=== PATIENT | male | born 1985 | race African-American/Black ===

== ENCOUNTER → 2017-01-23 | Outpatient (CLI) | payer OTHER, SELFPAY ==
[~2017-01-23] MED LIST: BACT800T5 PO; CLEO300C2 PO; HYDR-3713 PO; NICO14DI20 TD
--- NOTE | 2017-01-28 09:53 | SLEEPCENT ---
DATE OF PROCEDURE: 01/23/1027 ORDERED BY: ANDREA Castro Nocturnal polysomnography was performed for the titration of pressure therapy in this patient with obstructive sleep apnea syndrome, apnea hypopnea index of 8. For testing, the patient was fit with a Fajardo and Paycarlos, Simplus full face mask of medium size. 4 cm of water pressure were applied to the circuit and the lights were extinguished. 7 hours and 37 minutes of data were reviewed. There were 395 minutes of sleep identified. Sleep latency was mildly prolonged at 20 minutes. Rapid eye movement (REM) latency was normal at 84 minutes. Sleep architecture was good with 3 REM periods. Overall sleep efficiency was 88.7%. The patient's electrocardiogram (EKG) showed a sinus rhythm with an average heart rate of 64 beats per minute. Electroencephalogram (EEG) showed reasonably normal waveforms for awake and sleep. Respiratory events were found best palliated with CPAP at a pressure of +12. Some limb activity noted, but arousals from limb events occurred only 3.8 times per hour. IMPRESSION: Obstructive sleep apnea syndrome (G47.33). RECOMMENDATION: Nightly use of pressure therapy 12 cm of water.
== END ==
LOC: M SLEEP 19:54
PROVIDERS: ATTEND Nurse Practitioner Adult Health
DX: G47.33 Obstructive sleep apnea (adult) (pediatric) (principal)

== ENCOUNTER 2017-12-17 14:22 | Emergency (ER) | payer OTHER, SELFPAY | END 2017-12-17 16:48 | disposition home or self-care (01) | LOC: M ED 14:22 | DX: K02.9 Dental caries, unspecified (principal); F17.200 Nicotine dependence, unspecified, uncomplicated | CPT/HCPCS: 99283 ==

== ENCOUNTER 2019-11-21 13:06 | Emergency (ER) | payer OTHER, SELFPAY ==
[~2019-11-21] VITALS: Ht 167.6 cm; Wt 80.6 kg
[~2019-11-21 13:06] MED LIST changes: +HYDR-3715 PO; +PENI500T PO
[2019-11-21] MEDS ORDERED: ONDANSETRON 4 MG ORAL DISINTEGRATING TAB (Q0162 PER 1MG) PO ONE (15:00)
--- NOTE | 2019-11-21 15:07 | REP ---
Chest x-ray: Two views. History: fever and shortness of breath . Comparison study: June 07, 2012 . Findings: The lungs are well inflated and free of infiltrate. The pleural angles are sharp. The heart size is normal. Pulmonary vasculature is not increased. No significant bony abnormality is seen. Impression: Negative chest x-ray. Electronically Signed by Vito Barnes MD 11/21/2019 02:59 P
--- NOTE | 2019-11-21 15:25 | REP ---
Right thumb series: Four views. History: Fever, shortness of breath. Findings: Four views of the right thumb demonstrate normal bones, joints, and soft tissues. No fracture subluxation or opaque foreign body is seen. Impression: No acute bony abnormality. Electronically Signed by Vito Barnes MD 11/21/2019 05:52 P
[2019-11-21] MEDS ORDERED: ADACEL/BOOSTRIX VACCINE (DIPHTH/PERTUSS/ACELL/TETANUS)0.5ML SYR (90715) IM ONE (15:30)
[2019-11-21] MEDS ORDERED: ONDA4TAB6 PO (15:42)
[2019-11-21 15:55] VITALS: BP 155/96
== END 2019-11-21 15:57 | disposition home or self-care (01) ==
LOC: M ED 13:06
DX: B34.9 Viral infection, unspecified (principal); R19.7 Diarrhea, unspecified; J02.9 Acute pharyngitis, unspecified; R11.0 Nausea; S61.011A Laceration without foreign body of right thumb without damage to nail, initial encounter; X58.XXXA Exposure to other specified factors, initial encounter; Y92.89 Other specified places as the place of occurrence of the external cause
CPT/HCPCS: 71046; 73140; 87880; 90471; 90715; 99284; Q0162

== ENCOUNTER 2021-08-28 20:58 | Emergency (ER) | payer SELFPAY ==
[~2021-08-28] VITALS: Ht 170.2 cm; Wt 87.3 kg
[~2021-08-28 20:58] MED LIST changes: +ONDA4TAB6 PO
--- OUTSIDE RECORDS SUMMARY | 2021-08-28 21:04 | CCD ---
Author Author [facility] Organization [facility] Address Unknown Phone Unavailable Support Name Relationship Address Phone SONIC Next Of Kin [address] [place] [address] YUSEF MENCHACA Next Of Kin [address] [place] [address] DEMARCUS MENCHACA Next Of Kin [address] [place] [id number] UE Next Of Kin Unknown Unavailable QUIN [place] [address] Unavailable JJ BEATTY Next Of Kin [address] [facility] [address] [place] [phone] Demarcus Menchaca ECON Unknown Unavailable Re-disclosure Warning The records that you are about to access may contain information from federally-assisted alcohol or drug abuse programs. If such information is present, then the following federally mandated warning applies: This information has been disclosed to you from records protected by federal confidentiality rules (42 CFR part 2). The federal rules prohibit you from making any further disclosure of this information unless further disclosure is expressly permitted by the written consent of the person to whom it pertains or as otherwise permitted by 42 CFR part 2. A general authorization for the release of medical or other information is NOT sufficient for this purpose. The Federal rules restrict any use of the information to criminally investigate or prosecute any alcohol or drug abuse patient.The records that you are about to access may contain highly sensitive health information, the redisclosure of which is protected by Article 27-F of the [facility] Public Health law. If you continue you may have access to information: Regarding HIV / AIDS; Provided by facilities licensed or operated by the [facility] Office of Mental Health; or Provided by the [facility] Office for People With Developmental Disabilities. If such information is present, then the following [facility] mandated warning applies: This information has been disclosed to you from confidential records which are protected by state law. State law prohibits you from making any further disclosure of this information without the specific written consent of the person to whom it pertains, or as otherwise permitted by law. Any unauthorized further disclosure in violation of state law may result in a fine or senior living sentence or both. A general authorization for the release of medical or other information is NOT sufficient authorization for further disc losure. Family History Family Member Name Family Member Gender Family Member Status Date o f Status Description Data Source(s) Unknown Male Problem [facility] ([facility] () Medications No Information Insurance Providers Payer name Policy type / Coverage type Policy ID Covered democrat ID Covered democrat's relationship to lopez Policy Lopez Plan Information [place] [employer] ([facility]) [id number] 0 [id number] Self [id number] [place] [employer] ([facility]) [id number] 0 [id number] Self [id number] SELF PAY ONLY UNAVAILABLE SP UNAV AILABLE MEDICAID M [id number] S [id number] O UNAVAILABLE UNAVAILA BLE MEDICAID [id number] SP [id number] SELF PAY UNAVAILABLE SP UNAVAILA BLE OTHER1 UNAVAILABLE UNAVAILA BLE SELF PAY ONLY [id number] SP [id number] P UNAVAILABLE UNAVAILA BLE [facility] [id number] Problems, Conditions, and Diagnoses No Information Surgeries/Procedures No Information Results No Information Social History No Information
[2021-08-29] MEDS ORDERED: KETOROLAC 30 MG/ML 1ML VIAL IV ONE (09:20)
--- OUTSIDE RECORDS SUMMARY | 2021-08-29 09:23 | CCD ---
Author Author [facility] Organization [facility] Address Unknown Phone Unavailable Support Name Relationship Address Phone SONIC Next Of Kin [address] [place] [address] YUSEF MENCHACA Next Of Kin [address] [place] [address] DEMARCUS MENCHACA Next Of Kin [address] [place] [id number] UE Next Of Kin Unknown Unavailable QU[place] [address] Unavailable JJ BEATTY Next Of Kin [address] [facility] [address] [place] [phone] Demarcus Menchaca ECON Unknown Unavailable Re-disclosure Warning [...] is protected by Article 27-F of the [facility] Public Health law. If you continue you may have access to information: Regarding HIV / AIDS; Provided by facilities licensed or operated by the [facility] Office of Mental Health; or Provided by the [facility] Office for People With Developmental Disabilities. If such information is present, then the following [facility] mandated warning applies: This information has been [...] law may result in a fine or residential sentence or both. A general authorization for the release of medical or other information is NOT sufficient authorization for further disc losure. Family History Family Member Name Family Member Gender Family Member Status Date o f Status Description Data Source(s) Unknown Male Problem [facility] ([facility] () Medications No Information Insurance Providers Payer name Policy type / Coverage type Policy ID Covered green party ID Covered green party's relationship to lopez Policy Lopez Plan Information [place] [employer] ([facility]) [id number] 0 [id number] Self [id number] [place] [employer] ([facility]) [id number] 0 [id number] Self [id number] SELF PAY ONLY UNAVAILABLE SP UNAV AILABLE MEDICAID M [id number] S [id number] O UNAVAILABLE UNAVAILA BLE MEDICAID [id number] SP [id number] SELF PAY UNAVAILABLE SP UNAVAILA BLE OTHER1 UNAVAILABLE UNAVAILA BLE SELF PAY ONLY [id number] SP [id number] P UNAVAILABLE UNAVAILA BLE [facility] [id number] Problems, Conditions, and Diagnoses No Information Surgeries/Procedures No Information Results No Information Social History No Information
[2021-08-29 10:54] LABS: BASO % 0.4 % (0.0-1.0); EOS # 0.2 10^3/uL (0.0-0.5); EOS % 1.8 % (0.0-3.0); HEMOGLOBIN 15.1 g/dl (13.5-17.5); LYMPH # 2.6 10^3/uL (1.5-5.0); LYMPH % 25.3 % (24.0-44.0); MEAN CORPUSCULAR HEMOGLOBIN 29.8 pg (27.0-33.0); MEAN CORPUSCULAR HGB CONC 33.6 g/dl (32.0-36.5); MEAN CORPUSCULAR VOLUME 88.9 fl (80.0-96.0); MONO # 0.6 10^3/uL (0.0-0.8); MONO % 5.9 % (2.0-8.0); NEUTROPHILS # 6.9 10^3/uL (1.5-8.5); NEUTROPHILS % 66.3 % (36.0-66.0); PLATELET COUNT, AUTOMATED 228 10^3/uL (150-450); RED BLOOD COUNT 5.06 10^6/uL (4.30-6.10); WHITE BLOOD COUNT 10.4 10^3/uL (4.0-10.0)
[2021-08-29 11:21] LABS: ERYTHROCYTE SEDIMENTATION RATE 15 mm/hr (0-15)
[2021-08-29] MEDS ORDERED: ISOVUE-370 76% 100ML VIAL As Ordered ONE (11:45)
--- NOTE | 2021-08-29 13:23 | REPVR ---
PROCEDURE INFORMATION: Exam: CT Neck With Contrast Exam date and time: 08/29/2021 11:47 AM Age: 35 years old Clinical indication: Mass, lump, or swelling in neck; Left; Additional info: Dental caries, R/O abscess L upper teeth TECHNIQUE: Imaging protocol: Computed tomography images of the neck with contrast. Radiation optimization: All CT scans at this facility use at least one of these dose optimization techniques: automated exposure control; mA and/or kV adjustment per patient size (includes targeted exams where dose is matched to clinical indication); or iterative reconstruction. Contrast material: ISOVUE 370; Contrast volume: 75 ml; Contrast route: INTRAVENOUS (IV); COMPARISON: CT Neck with contrast 01/25/2016 1:07 PM FINDINGS: Paranasal sinuses: Marked mucosal thickening is present in the left maxillary sinus. Nasopharynx: Unremarkable. Dental: Extensive dental disease is present. Large dental caries and periapical abscesses are seen involving the left maxillary molar teeth. No adjacent subperiosteal abscess is identified. Oropharynx: Unremarkable. No significant tonsillar enlargement. Hypopharynx: Unremarkable. Larynx: Unremarkable. Normal epiglottis. Retropharyngeal space: Unremarkable. Submandibular/Parotid glands: Normal. Glands are normal in size. Thyroid: Normal. No enlarged or calcified nodules. Lymph nodes: Several mildly enlarged left submandibular and cervical chain lymph nodes are present. There are numerous small bilateral cervical chain lymph nodes. Trachea: Visualized trachea is unremarkable. Lungs: Unremarkable as visualized. Bones/joints: Mild degenerative changes of the cervical spine are present. Soft tissues: Unremarkable. No significant soft tissue swelling. IMPRESSION: 1. Extensive dental disease is present. Large dental caries and periapical abscesses are seen involving the left maxillary molar teeth. No adjacent subperiosteal abscess is identified. 2. Several mildly enlarged left submandibular and cervical chain lymph nodes are present. Electronically signed by: Lucius Mittal On 08/29/2021 13:23:09 PM
[2021-08-29] MEDS ORDERED: AMPICILLIN SOD/SULBACTAM SOD 3 GM in D5W MINI-BAG PLUS 100 ML IV ONE (13:35)
[2021-08-29] MEDS ORDERED: AUGM875T28 PO (13:51)
[2021-08-29] MEDS ORDERED: HYDR-3713 PO (13:51)
[2021-08-29] MEDS ORDERED: IBUP80TA PO (13:51)
[2021-08-29 14:41] VITALS: BP 141/85
== END 2021-08-29 15:12 | disposition home or self-care (01) ==
LOC: M ED 20:58
DX: K04.7 Periapical abscess without sinus (principal); K02.9 Dental caries, unspecified; R59.9 Enlarged lymph nodes, unspecified; R68.84 Jaw pain; G47.33 Obstructive sleep apnea (adult) (pediatric); F17.200 Nicotine dependence, unspecified, uncomplicated
CPT/HCPCS: 70491; 80047; 85025; 85652; 86140; 87040; 96365; 96375; 99284; J1885; Q9967

== ENCOUNTER 2021-09-13 09:41 | Emergency (ER) | payer SELFPAY ==
[~2021-09-13] VITALS: Ht 170.2 cm; Wt 88.9 kg
[~2021-09-13 09:41] MED LIST changes: +AUGM875T28 PO; +IBUP80TA PO
--- OUTSIDE RECORDS SUMMARY | 2021-09-13 09:47 | CCD ---
Author Author [facility] Organization [facility] Address Unknown Phone Unavailable Support Name Relationship Address Phone SONIC Next Of Kin [address] [place] [address] YUSEF MENCHACA Next Of Kin [address] [place] [address] RAMBO MENCHACA Next Of Kin [address] [place] [address] UE Next Of Kin Unknown Unavailable QUIN [place] [address] Unavailable JJ BEATTY Next Of Kin [address] [facility] [address] [place] [phone] RAMBO MENCHACA ECON [address] [place] [address] Unavailable Re-disclosure Warning The records that you [...] is protected by Article 27-F of the [facility] Public Health law. If you continue you may have access to information: Regarding HIV / AIDS; Provided by facilities licensed or operated by the [facility] Office of Mental Health; or Provided by the [facility] Office for People With Developmental Disabilities. If such information is present, then the following [place] mandated warning applies: This information has been [...] law may result in a fine or shelter sentence or both. A general authorization for the release of medical or other information is NOT sufficient authorization for further disc losure. Family History Family Member Name Family Member Gender Family Member Status Date o f Status Description Data Source(s) Unknown Male Problem [facility] ([facility] () Medications No Information Insurance Providers Payer name Policy type / Coverage type Policy ID Covered alliance party ID Covered alliance party's relationship to lopez Policy Lopez Plan Information [place] [employer] ([facility]) [id number] 0 [id number] Self 7 [id number] [employer] ([facility]) [id number] 0 [id number] Self 7 [id number] SELF PAY ONLY UNAVAILABLE SP UNAV AILABLE MEDICAID M [id number] S [id number] O UNAVAILABLE UNAVAILA BLE MEDICAID [id number] SP [id number] SELF PAY UNAVAILABLE SP UNAVAILA BLE OTHER1 UNAVAILABLE UNAVAILA BLE SELF PAY ONLY [id number] SP [id number] P UNAVAILABLE UNAVAILA BLE [facility] [id number] Problems, Conditions, and Diagnoses No Information Surgeries/Procedures No Information Results No Information Social History No Information
--- OUTSIDE RECORDS SUMMARY | 2021-09-13 13:13 | CCD ---
Author Author [facility] Organization [facility] Address Unknown Phone Unavailable Support Name Relationship Address Phone SONIC Next Of Kin [address] [place] [address] YUSEF MENCHACA Next Of Kin [address] [place] [address] RAMBO MENCHACA Next Of Kin [address] [place] [address] UE Next Of Kin Unknown Unavailable QU[place] [address] Unavailable JJ BEATTY Next Of Kin [address] [facility] [address] [place] [phone] RAMBO MENCHACA ECON [address] [place] [address] Unavailable Re-disclosure Warning The records that you [...] is protected by Article 27-F of the [facility] Public Health law. If you continue you may have access to information: Regarding HIV / AIDS; Provided by facilities licensed or operated by the [facility] Office of Mental Health; or Provided by the [facility] Office for People With Developmental Disabilities. If such information is present, then the following [place] mandated warning applies: This information has [...] law may result in a fine or long-term sentence or both. A general authorization for [...] type / Coverage type Policy ID Covered libertarian ID Covered libertarian's relationship to lopez Policy Lopez Plan Information [employer] [employer] ([facility]) [id number] 0 [id number] Self 7 [id number] [employer] ([facility]) [id number] 0 [id number] Self 7 [id number] SELF PAY ONLY UNAVAILABLE SP UNAV AILABLE MEDICAID M [id number] S [id number] O UNAVAILABLE UNAVAILA BLE MEDICAID [id number] SP [id number] SELF PAY UNAVAILABLE SP UNAVAILA BLE OTHER1 UNAVAILABLE UNAVAILA BLE SELF PAY ONLY [id number] SP [id number] P UNAVAILABLE UNAVAILA BLE [facility] [id number] Problems, Conditions, and Diagnoses No Information Surgeries/Procedures No Information Results No Information Social History No Information
[2021-09-13 13:27] LABS: RSV AMPLIFICATION NEGATIVE (NEGATIVE)
[2021-09-13 14:34] VITALS: BP 110/89
== END 2021-09-13 14:47 | disposition home or self-care (01) ==
LOC: M ED 09:41
DX: Z20.822 Contact with and (suspected) exposure to COVID-19 (principal); F17.200 Nicotine dependence, unspecified, uncomplicated

== ENCOUNTER 2022-07-09 07:51 | Emergency (ER) | payer SELFPAY ==
[~2022-07-09] VITALS: Ht 170.2 cm; Wt 84.0 kg
[~2022-07-09 07:51] MED LIST changes: +OXYM15SP2
[2022-07-09] MEDS ORDERED: LIDOCAINE 2% W/ EPINEPHRINE 1.7 ML DENTAL INJ SM ONE ×2 (08:15→08:45)
[2022-07-09] MEDS ORDERED: IBUPROFEN 800 MG TAB PO ONE (08:45)
[2022-07-09 09:28] VITALS: BP 138/96
== END 2022-07-09 09:30 | disposition home or self-care (01) ==
LOC: M ED 07:51
DX: S02.5XXA Fracture of tooth (traumatic), initial encounter for closed fracture (principal); X58.XXXA Exposure to other specified factors, initial encounter; Y92.89 Other specified places as the place of occurrence of the external cause; G47.33 Obstructive sleep apnea (adult) (pediatric); Z99.89 Dependence on other enabling machines and devices; F17.200 Nicotine dependence, unspecified, uncomplicated

== ENCOUNTER 2022-09-01 21:06 | Emergency (ER) | payer SELFPAY ==
[~2022-09-01] VITALS: Ht 170.2 cm; Wt 76.4 kg
[2022-09-02 01:25] VITALS: BP 135/85
[2022-09-02] MEDS ORDERED: DOXYCYCLINE HYCLATE 100MG TABLET PO ONE (06:15)
[2022-09-02] MEDS ORDERED: DOXY-443 PO (06:21)
== END 2022-09-02 06:30 | disposition home or self-care (01) ==
LOC: M ED 21:06
DX: H60.13 Cellulitis of external ear, bilateral (principal); G47.30 Sleep apnea, unspecified; F17.210 Nicotine dependence, cigarettes, uncomplicated

== ENCOUNTER 2023-06-13 20:27 | Inpatient (IN) | payer SELFPAY ==
[~2023-06-13] VITALS: Ht 170.2 cm; Wt 86.4 kg
[~2023-06-13 20:27] MED LIST changes: +DOXY-443 PO
[2023-06-13] MEDS ORDERED: NS 1,000 ML IV ONE (22:50)
[2023-06-13] MEDS ORDERED: VANCOMYCIN HCL 1,500 MG in IV FLUID PLACE HOLDER 1 EA IV ONE (22:50)
[2023-06-13] MEDS ORDERED: ACETAMINOPHEN 325 MG TAB PO ONE (23:00)
[2023-06-13] MEDS ORDERED: VANCOMYCIN HCL 750 MG, VIAL MATE ADAPTER 1 EACH in D5W 250 ML IV ONE ×6 (23:00)
[2023-06-13 23:24] LABS: BASO # 0.1 10^3/uL (0.0-0.2); BASO % 0.2 % (0.0-1.0); EOS # 0.1 10^3/uL (0.0-0.5); EOS % 0.2 % (0.0-3.0); HEMATOCRIT 40.4 % (42.0-52.0); HEMOGLOBIN 13.6 g/dl (13.5-17.5); LYMPH # 2.4 10^3/uL (1.5-5.0); LYMPH % 11.4 % (24.0-44.0); MEAN CORPUSCULAR HEMOGLOBIN 29.4 pg (27.0-33.0); MEAN CORPUSCULAR HGB CONC 33.7 g/dl (32.0-36.5); MEAN CORPUSCULAR VOLUME 87.4 fl (80.0-96.0); MONO # 1.4 10^3/uL (0.0-0.8); MONO % 6.7 % (2.0-8.0); NEUTROPHILS # 17.1 10^3/uL (1.5-8.5); NEUTROPHILS % 80.9 % (36.0-66.0); PLATELET COUNT, AUTOMATED 242 10^3/uL (150-450); RED BLOOD COUNT 4.62 10^6/uL (4.30-6.10); WHITE BLOOD COUNT 21.1 10^3/uL (4.0-10.0)
[2023-06-13 23:32] LABS: ERYTHROCYTE SEDIMENTATION RATE 61 mm/hr (0-15)
[2023-06-13 23:37] LABS: INR 1.22; PROTHROMBIN TIME 15.7 SECONDS (12.5-14.5)
[2023-06-13 23:38] LABS: PARTIAL THROMBOPLASTIN TIME 32.5 SECONDS (24.8-34.2)
[2023-06-13 23:44] LABS: ALBUMIN 3.7 G/DL (3.2-5.2); BILIRUBIN,DIRECT 0.3 MG/DL (<0.4); BILIRUBIN,TOTAL 0.7 MG/DL (0.3-1.2); C REACTIVE PROTEIN QUANTITATIV 18.1 MG/DL (<1.0); TOTAL PROTEIN 6.7 G/DL (5.7-8.2)
[2023-06-14] VITALS (8 sets, daily range): BP systolic 140–164; BP diastolic 69–92; TEMP 97.3–100.9; O2SAT 97–100
[2023-06-14] MEDS ORDERED: NS 1,430 ML in IV 1 EA IV ONE (00:15)
[2023-06-14] MEDS ORDERED: HOME MED LIST COMPLETE! XX SCH (00:40)
[2023-06-14] MEDS ORDERED: ACETAMINOPHEN TAB 650MG DOSE (2X325MG) PO PRN (01:45)
[2023-06-14] MEDS ORDERED: NS 1,000 ML IV SCH (01:55)
[2023-06-14] MEDS: HEPARIN SOD (PORCINE) 5000UNITS/ML 1ML VIAL/SYRINGE SC SCH ×3 (05:50→22:28)
[2023-06-14] MEDS: VANCOMYCIN HCL 1,000 MG, VIAL MATE ADAPTER 1 EACH in NS 250 ML IV SCH ×2 (05:50→14:27)
[2023-06-14] MEDS: NS 1,000 ML IV SCH ×3 (07:00→22:28)
[2023-06-14 08:27] LABS: HEMOGLOBIN 13.1 g/dl (13.5-17.5); MEAN CORPUSCULAR HEMOGLOBIN 29.8 pg (27.0-33.0); MEAN CORPUSCULAR HGB CONC 33.6 g/dl (32.0-36.5); MEAN CORPUSCULAR VOLUME 88.8 fl (80.0-96.0); PLATELET COUNT, AUTOMATED 222 10^3/uL (150-450); RED BLOOD COUNT 4.39 10^6/uL (4.30-6.10); WHITE BLOOD COUNT 24.4 10^3/uL (4.0-10.0)
[2023-06-14] MEDS: IBUPROFEN 400MG TAB PO SCH ×2 (09:11→22:27)
[2023-06-14 09:24] LABS: HIV 1&2 SCREEN NEGATIVE (NEGATIVE)
[2023-06-14 09:34] LABS: ALKALINE PHOSPHATASE 62 U/L (46-116); ALT/SGPT 10 U/L (7.0-40); AST/SGOT 9 U/L (<34); BILIRUBIN,TOTAL 0.7 MG/DL (0.3-1.2); BLOOD UREA NITROGEN 6 MG/DL (9-23); CARBON DIOXIDE LEVEL 24 MMOL/L (20-31); CHLORIDE LEVEL 108 MMOL/L (98-107); CREATININE FOR GFR 0.79 MG/DL (0.70-1.30); GLOMERULAR FILTRATION RATE > 60.0 (>60); GLUCOSE, FASTING 88 MG/DL (60-100); MAGNESIUM LEVEL 1.6 MG/DL (1.8-2.4); POTASSIUM SERUM 3.7 MMOL/L (3.5-5.1); SODIUM LEVEL 142 MMOL/L (136-145); TOTAL PROTEIN 5.7 G/DL (5.7-8.2)
[2023-06-14 10:34] LABS: ANTI-STREPTOLYSIN O QUANT 90.1 IU/ML (<195)
[2023-06-14] MEDS ORDERED: propofoL 200 MG/20 ML VIAL As Ordered ONE (20:18)
[2023-06-14] MEDS ORDERED: KETOROLAC 60MG 2ML VIAL As Ordered ONE ×2 (20:18→20:23)
[2023-06-14] MEDS ORDERED: ONDANSETRON 4MG 2ML VIAL As Ordered ONE (20:18)
[2023-06-14] MEDS ORDERED: MIDAZOLAM INJ 2MG/2ML VIAL As Ordered ONE (20:18)
[2023-06-14] MEDS ORDERED: fentaNYL 100 MCG/2 ML INJECTION As Ordered ONE (20:18)
[2023-06-14] MEDS ORDERED: LIDOCAINE 2% 100MG/5ML SDV (FOR ANES.) As Ordered ONE (20:18)
[2023-06-14] MEDS ORDERED: dexmedeTOMIDine (4MCG/ML)200MCG/50ML BTL (PRECEDEX) As Ordered ONE (20:23)
[2023-06-14] MEDS ORDERED: ACETAMINOPHEN 1000MG 100ML IV BAG As Ordered ONE (21:26)
[2023-06-14] MEDS ORDERED: PERCOCET 5MG/325MG TAB PO PRN (23:15)
[2023-06-14] MEDS: PERCOCET 5MG/325MG TAB PO PRN (23:37)
[2023-06-15] VITALS (21 sets, daily range): BP systolic 108–152; BP diastolic 59–90; TEMP 96.5–98.3; O2SAT 96–100
[2023-06-15] MEDS: VANCOMYCIN HCL 1,000 MG, VIAL MATE ADAPTER 1 EACH in NS 250 ML IV SCH ×4 (00:54→16:14)
[2023-06-15] MEDS ORDERED: ACETAMINOPHEN TAB 650MG DOSE (2X325MG) PO PRN (01:45)
[2023-06-15 04:54] LABS: BASO % 0.1 % (0.0-1.0); HEMATOCRIT 37.9 % (42.0-52.0); HEMOGLOBIN 12.5 g/dl (13.5-17.5); LYMPH # 1.1 10^3/uL (1.5-5.0); LYMPH % 4.5 % (24.0-44.0); MEAN CORPUSCULAR HEMOGLOBIN 29.6 pg (27.0-33.0); MEAN CORPUSCULAR VOLUME 89.8 fl (80.0-96.0); MONO % 4.3 % (2.0-8.0); NEUTROPHILS # 21.5 10^3/uL (1.5-8.5); NEUTROPHILS % 89.4 % (36.0-66.0); PLATELET COUNT, AUTOMATED 223 10^3/uL (150-450); RED BLOOD COUNT 4.22 10^6/uL (4.30-6.10)
[2023-06-15 04:59] LABS: BLOOD UREA NITROGEN 7 MG/DL (9-23); CALCIUM LEVEL 7.9 MG/DL (8.5-10.1); CARBON DIOXIDE LEVEL 23 MMOL/L (20-31); CHLORIDE LEVEL 106 MMOL/L (98-107); CREATININE FOR GFR 0.78 MG/DL (0.70-1.30); GLOMERULAR FILTRATION RATE > 60.0 (>60); GLUCOSE, FASTING 163 MG/DL (60-100); MAGNESIUM LEVEL 1.6 MG/DL (1.8-2.4); POTASSIUM SERUM 3.9 MMOL/L (3.5-5.1); SODIUM LEVEL 140 MMOL/L (136-145)
[2023-06-15] MEDS: HEPARIN SOD (PORCINE) 5000UNITS/ML 1ML VIAL/SYRINGE SC SCH ×4 (05:43→22:00)
[2023-06-15] MEDS: PIPERACILLIN/TAZOBACTAM SOD 3.375 GM in D5W MINI-BAG PLUS 50 ML IV SCH ×3 (06:44→18:25)
[2023-06-15] MEDS: MAG SULF 1GM/100ML (MAG RUN) 100 ML IV SCH ×2 (08:08→09:21)
[2023-06-15] MEDS: IBUPROFEN 400MG TAB PO SCH (08:08)
[2023-06-15] MEDS: NS 1,000 ML IV SCH ×3 (12:00→23:11)
[2023-06-15] MEDS: PERCOCET 5MG/325MG TAB PO PRN (16:23)
[2023-06-16] MEDS: VANCOMYCIN HCL 1,000 MG, VIAL MATE ADAPTER 1 EACH in NS 250 ML IV SCH ×2 (00:51→04:01)
[2023-06-16] MEDS: PIPERACILLIN/TAZOBACTAM SOD 3.375 GM in D5W MINI-BAG PLUS 50 ML IV SCH ×5 (00:53→22:10)
[2023-06-16] MEDS: IBUPROFEN 400MG TAB PO SCH (02:20)
[2023-06-16] MEDS: HEPARIN SOD (PORCINE) 5000UNITS/ML 1ML VIAL/SYRINGE SC SCH ×3 (05:24→20:19)
[2023-06-16 05:28] VITALS: BP 148/88; TEMP 98.1; O2SAT 96
[2023-06-16 05:49] LABS: BASO # 0.1 10^3/uL (0.0-0.2); BASO % 0.3 % (0.0-1.0); EOS # 0.2 10^3/uL (0.0-0.5); EOS % 0.9 % (0.0-3.0); HEMATOCRIT 34.3 % (42.0-52.0); HEMOGLOBIN 11.6 g/dl (13.5-17.5); LYMPH # 2.8 10^3/uL (1.5-5.0); LYMPH % 13.9 % (24.0-44.0); MEAN CORPUSCULAR HEMOGLOBIN 29.6 pg (27.0-33.0); MEAN CORPUSCULAR HGB CONC 33.8 g/dl (32.0-36.5); MEAN CORPUSCULAR VOLUME 87.5 fl (80.0-96.0); MONO # 1.2 10^3/uL (0.0-0.8); MONO % 6.2 % (2.0-8.0); NEUTROPHILS # 15.5 10^3/uL (1.5-8.5); PLATELET COUNT, AUTOMATED 232 10^3/uL (150-450); RED BLOOD COUNT 3.92 10^6/uL (4.30-6.10); WHITE BLOOD COUNT 19.8 10^3/uL (4.0-10.0)
[2023-06-16 06:19] LABS: BLOOD UREA NITROGEN 9 MG/DL (9-23); CALCIUM LEVEL 7.4 MG/DL (8.5-10.1); CARBON DIOXIDE LEVEL 25 MMOL/L (20-31); CHLORIDE LEVEL 109 MMOL/L (98-107); CREATININE FOR GFR 0.77 MG/DL (0.70-1.30); GLOMERULAR FILTRATION RATE > 60.0 (>60); GLUCOSE, FASTING 107 MG/DL (60-100); MAGNESIUM LEVEL 1.7 MG/DL (1.8-2.4); POTASSIUM SERUM 3.7 MMOL/L (3.5-5.1); SODIUM LEVEL 143 MMOL/L (136-145)
[2023-06-16] MEDS: MAG SULF 1GM/100ML (MAG RUN) 100 ML IV SCH ×2 (08:05→09:28)
[2023-06-16] MEDS: PERCOCET 5MG/325MG TAB PO PRN (09:32)
[2023-06-16] MEDS ORDERED: diphenhydrAMINE 50MG/ML VIAL IV ONE (10:35)
[2023-06-16] MEDS: NS 1,000 ML IV SCH (11:00)
[2023-06-16] MEDS ORDERED: VANCOMYCIN HCL 750 MG, VIAL MATE ADAPTER 1 EACH in D5W 250 ML IV SCH (12:00)
[2023-06-16] MEDS ORDERED: VANCOMYCIN HCL 500 MG in D5W MINI-BAG PLUS 100 ML IV SCH (13:00)
[2023-06-16 14:00] VITALS: BP 138/79; TEMP 98.2; O2SAT 94
[2023-06-16] MEDS: BENZOCAINE 10% 9GM TUBE (ANBESOL) MT SCH ×3 (14:22→21:43)
[2023-06-16 20:06] VITALS: BP 145/86; TEMP 98.4; O2SAT 96
[2023-06-16] MEDS: NORCO, ANEXSIA 5/325MG TABLET (HYDROcodone/ACETAMINOPHEN) PO PRN (20:18)
[2023-06-17] MEDS: PIPERACILLIN/TAZOBACTAM SOD 3.375 GM in D5W MINI-BAG PLUS 50 ML IV SCH ×2 (04:44→11:40)
[2023-06-17] MEDS: HEPARIN SOD (PORCINE) 5000UNITS/ML 1ML VIAL/SYRINGE SC SCH ×3 (04:44→21:54)
[2023-06-17] MEDS: NORCO, ANEXSIA 5/325MG TABLET (HYDROcodone/ACETAMINOPHEN) PO PRN ×4 (04:45→20:50)
[2023-06-17 06:00] VITALS: BP 144/81; TEMP 97.3; O2SAT 100
[2023-06-17 06:03] LABS: HEMATOCRIT 33.1 % (42.0-52.0); HEMOGLOBIN 10.9 g/dl (13.5-17.5); MEAN CORPUSCULAR HEMOGLOBIN 29.4 pg (27.0-33.0); MEAN CORPUSCULAR HGB CONC 32.9 g/dl (32.0-36.5); MEAN CORPUSCULAR VOLUME 89.2 fl (80.0-96.0); PLATELET COUNT, AUTOMATED 235 10^3/uL (150-450); RED BLOOD COUNT 3.71 10^6/uL (4.30-6.10); WHITE BLOOD COUNT 9.4 10^3/uL (4.0-10.0)
[2023-06-17 06:25] LABS: BLOOD UREA NITROGEN 7 MG/DL (9-23); CALCIUM LEVEL 7.6 MG/DL (8.5-10.1); CARBON DIOXIDE LEVEL 27 MMOL/L (20-31); CHLORIDE LEVEL 110 MMOL/L (98-107); CREATININE FOR GFR 0.83 MG/DL (0.70-1.30); GLOMERULAR FILTRATION RATE > 60.0 (>60); GLUCOSE, FASTING 106 MG/DL (60-100); MAGNESIUM LEVEL 1.6 MG/DL (1.8-2.4); POTASSIUM SERUM 3.7 MMOL/L (3.5-5.1); SODIUM LEVEL 144 MMOL/L (136-145)
[2023-06-17 07:15] LABS: ATYPICAL LYMPH 9 % (0-5); EOSINOPHILS 2 % (0-3); LYMPHOCYTES 30 % (16-44); MONOCYTES 5 % (0-5); NEUTROPHILS 54 % (28-66)
[2023-06-17 07:16] LABS: PLATELET ESTIMATE NORMAL (NORMAL)
[2023-06-17] MEDS: MAG SULF 1GM/100ML (MAG RUN) 100 ML IV SCH ×4 (08:45→13:27)
[2023-06-17] MEDS: BENZOCAINE 10% 9GM TUBE (ANBESOL) MT SCH ×4 (09:00→20:46)
[2023-06-17 14:00] VITALS: BP 150/88; TEMP 97.5; O2SAT 96
[2023-06-17 20:00] VITALS: BP 142/86; TEMP 98; O2SAT 97
[2023-06-17] MEDS: AUGMENTIN 875 MG TAB PO SCH (20:46)
[2023-06-18] MEDS: NORCO, ANEXSIA 5/325MG TABLET (HYDROcodone/ACETAMINOPHEN) PO PRN ×2 (00:59→08:36)
[2023-06-18] MEDS: HEPARIN SOD (PORCINE) 5000UNITS/ML 1ML VIAL/SYRINGE SC SCH (05:56)
[2023-06-18 06:08] LABS: HEMATOCRIT 37.3 % (42.0-52.0); HEMOGLOBIN 12.6 g/dl (13.5-17.5); MEAN CORPUSCULAR HEMOGLOBIN 29.4 pg (27.0-33.0); MEAN CORPUSCULAR HGB CONC 33.8 g/dl (32.0-36.5); MEAN CORPUSCULAR VOLUME 86.9 fl (80.0-96.0); PLATELET COUNT, AUTOMATED 289 10^3/uL (150-450); RED BLOOD COUNT 4.29 10^6/uL (4.30-6.10); WHITE BLOOD COUNT 8.7 10^3/uL (4.0-10.0)
[2023-06-18 06:29] VITALS: BP 167/87; TEMP 98.1; O2SAT 97
[2023-06-18 06:33] LABS: BLOOD UREA NITROGEN < 5 MG/DL (9-23); CALCIUM LEVEL 8.3 MG/DL (8.5-10.1); CARBON DIOXIDE LEVEL 30 MMOL/L (20-31); CHLORIDE LEVEL 105 MMOL/L (98-107); CREATININE FOR GFR 0.76 MG/DL (0.70-1.30); GLOMERULAR FILTRATION RATE > 60.0 (>60); GLUCOSE, FASTING 82 MG/DL (60-100); MAGNESIUM LEVEL 1.7 MG/DL (1.8-2.4); POTASSIUM SERUM 3.7 MMOL/L (3.5-5.1); SODIUM LEVEL 141 MMOL/L (136-145)
[2023-06-18 07:09] LABS: HEPATITIS A IgG TOTAL Positive (Negative); HEPATITIS B CORE ANTIBODY IGG Negative (Negative)
[2023-06-18 07:55] LABS: ATYPICAL LYMPH 6 % (0-5); BASOPHILS 1 % (0-1); EOSINOPHILS 2 % (0-3); LYMPHOCYTES 41 % (16-44); MONOCYTES 7 % (0-5); NEUTROPHILS 43 % (28-66)
[2023-06-18 08:00] LABS: PLATELET ESTIMATE NORMAL (NORMAL)
[2023-06-18] MEDS ORDERED: MAGN400T35 PO (08:17)
[2023-06-18] MEDS ORDERED: AMLO1TAB24 PO (08:17)
[2023-06-18] MEDS ORDERED: AMOX875T2 PO (08:17)
[2023-06-18] MEDS ORDERED: HYDR-3715 PO (08:17)
[2023-06-18] MEDS: AUGMENTIN 875 MG TAB PO SCH (08:36)
[2023-06-18 08:37] VITALS: BP 140/97
[2023-06-18] MEDS ORDERED: amLODIPine 5 MG TAB PO SCH (09:00)
[2023-06-18] MEDS ORDERED: MAG SULF 1GM/100ML (MAG RUN) 1 GM in IV 1 EA IV SCH (09:00)
[2023-06-18] MEDS: BENZOCAINE 10% 9GM TUBE (ANBESOL) MT SCH ×2 (09:00→13:00)
[2023-06-18] MEDS ORDERED: MAGNESIUM OXIDE 400MG TAB (MAG-OX) PO SCH (09:00)
== END 2023-06-18 13:25 | disposition home health service (06) | DRG 710 ==
LOC: M ED 20:27 → M ED INP 06-14 01:45 → EEVIPCON 06-14 01:45 → ENRESERV 06-14 03:33 → M PCU 06-14 04:27 → M MS5PR 06-15 20:41
PROVIDERS: ADMIT Family Medicine; ATTEND Internal Medicine
PROC: 0X9D0ZZ Drainage of Right Lower Arm, Open Approach (ICD-10-PCS; 2023-06-14)
PROC: 05BD0ZZ Excision of Right Cephalic Vein, Open Approach (ICD-10-PCS; principal; 2023-06-14 12:20)
DX: A41.9 Sepsis, unspecified organism (principal); I82.611 Acute embolism and thrombosis of superficial veins of right upper extremity; K59.00 Constipation, unspecified; F15.10 Other stimulant abuse, uncomplicated; L02.413 Cutaneous abscess of right upper limb; E83.42 Hypomagnesemia; G47.33 Obstructive sleep apnea (adult) (pediatric); L03.113 Cellulitis of right upper limb; Z20.822 Contact with and (suspected) exposure to COVID-19

== ENCOUNTER 2023-12-24 09:24 | Emergency (ER) | payer BC, SELFPAY ==
[~2023-12-24] VITALS: Ht 170.2 cm; Wt 89.5 kg
[~2023-12-24 09:24] MED LIST changes: +AMLO1TAB24 PO; +AMOX875T2 PO; +MAGN400T35 PO
[2023-12-24] MEDS: LIDOCAINE 2% MDV 20ML VIAL SC ONE (11:21)
[2023-12-24] MEDS ORDERED: DOXY-443 PO (11:36)
[2023-12-24 11:44] VITALS: BP 127/61; TEMP 98.1; O2SAT 100
== END 2023-12-24 11:45 | disposition home or self-care (01) ==
LOC: M ED 09:24
DX: H60.01 Abscess of right external ear (principal); I10 Essential (primary) hypertension; F17.200 Nicotine dependence, unspecified, uncomplicated; Z79.899 Other long term (current) drug therapy

== ENCOUNTER 2024-02-12 12:10 | Emergency (ER) | payer BC ==
[~2024-02-12] VITALS: Ht 170.2 cm; Wt 90.7 kg
[2024-02-12] MEDS ORDERED: IBUP-1022 PO (13:17)
[2024-02-12 13:24] VITALS: BP 156/92; TEMP 97.8; O2SAT 99
== END 2024-02-12 13:29 | disposition home or self-care (01) ==
LOC: M ED 12:10
DX: S63.614A Unspecified sprain of right ring finger, initial encounter (principal); Y92.019 Unspecified place in single-family (private) house as the place of occurrence of the external cause; Y93.9 Activity, unspecified; Y99.9 Unspecified external cause status; F17.210 Nicotine dependence, cigarettes, uncomplicated; Z79.1 Long term (current) use of non-steroidal anti-inflammatories (NSAID)

== ENCOUNTER → 2024-02-17 | Outpatient (REF) | payer BC ==
[~2024-02-17] MED LIST changes: +IBUP-1022 PO
[2024-02-17 17:24] LABS: FREE T4 1.35 NG/DL (0.89-1.76); THYROID STIMULATING HORMONE 0.19 uIU/ML (0.55-4.78)
== END ==
LOC: M LAB REF 16:35
PROVIDERS: ATTEND Family Medicine Addiction Medicine
DX: R94.6 Abnormal results of thyroid function studies (principal)